=== PATIENT | female | born 1960 | race African-American/Black ===

== ENCOUNTER → 2020-03-02 | Day surgery (SDC) | payer OTHER ==
[2020-02-27 11:37] LABS: BASOPHILS # (AUTO) 0.1 (0.0-0.1); BASOPHILS % 0.6 % (0.0-1.0); EOSINOPHILS # (AUTO) 0.4 (0.0-0.4); EOSINOPHILS % 4.9 % (0.0-6.0); HEMATOCRIT 35.9 % (34.2-44.1); HEMOGLOBIN 12.1 g/dL (12.0-16.0); LYMPHOCYTES # (AUTO) 4.4 (1.0-3.2); LYMPHOCYTES % 55.5 % (18.0-39.1); MEAN CORPUSCULAR HEMOGLOBIN 28.8 pg (28-32); MEAN CORPUSCULAR HGB CONC 33.7 g/dL (31-35); MEAN CORPUSCULAR VOLUME 85.5 fL (81-99); MONOCYTES # (AUTO) 0.5 (0.2-0.8); MONOCYTES % 6.2 % (4.4-11.3); NEUTROPHILS # (AUTO) 2.6 (2.1-6.9); NEUTROPHILS % 32.5 % (38.7-80.0); PLATELET COUNT 256 x10e3/uL (140-360); RED CELL DISTRIBUTION WIDTH 14.6 % (11.7-14.4)
[~2020-03-02] MED LIST: AMLODIPINE BESY10 MG PO; ASPIRIN81 MG PO; ATORVASTATIN CA20 MG PO; CLOPIDOGREL75 MG PO; FENTANYL CITRATE/PF 100MCG/2 ML INJ ONE; GABAPENTIN100 MG PO; HYDROCHLOROTHIA25 MG PO; LIDOCAINE HCL 2% LOCAL INJ 5 ML SDV VIAL INJ ONE; METFORMIN HCL1000 MG PO; MIDAZOLAM HCL 2 MG/2 ML VIAL ONE; PANTOPRAZOLE 40 MG 10ML VIAL ONE; PROPOFOL IV EMULSION 10 MG/ML 20 ML VIAL ONE; SODIUM CHLORIDE 0.9% INJ 10 ML VIAL ONE
[2020-03-02 17:32] VITALS: BP 116/66
--- NOTE | 2020-03-25 20:09 | Operative Report ---
DATE OF PROCEDURE: 03/02/2020 SURGEON: Seth Casiano MD ADDENDUM: REFERRING PHYSICIAN: Sylvie Mulligan MD Seth Casiano MD [facility] [place] /[id number]
--- NOTE | 2020-03-25 20:15 | Operative Report ---
DATE OF PROCEDURE: 03/25/2020 SURGEON: Seth Casiano MD PROCEDURES: EGD with esophageal dilatation and biopsies, and colonoscopy with polypectomy. INDICATIONS FOR EGD: Dysphagia, weight loss. INDICATION FOR COLONOSCOPY: Colorectal cancer screening, constipation, and weight loss. MEDICATIONS: The patient was done under MAC, please see anesthesiologist's note. PROCEDURE IN DETAIL: With the patient in left lateral decubitus position, a flexible fiberoptic Olympus gastroscope was introduced into the esophagus under direct visualization without any difficulty. There was some patchy erythema noted in distal esophagus. A minute nodule was noted at the GE junction, that was biopsied. A mild stricture was noted at the GE junction and was dilated to size 52-[place]. The scope was then advanced with ease into the stomach, mucosa overlying the antrum and the body revealed some patchy erythema, low-grade to moderate edema, and biopsies were obtained, sent to stain for H. pylori. Pylorus was of normal contour and shape, it was intubated with ease and the scope, it was advanced all the way to the second portion of the duodenum. Biopsies were obtained from the proximal second portion and duodenal bulb to rule out sprue. The scope was then withdrawn back into the stomach and retroflexed, mucosa overlying the fundus and cardia appeared to be within normal limits. The scope was then straightened out, it was subsequently withdrawn. The patient tolerated the procedure well. IMPRESSION: 1. Distal esophagitis, mild. 2. Minute nodule, GE junction, biopsied. 3. Mild stricture, GE junction, dilated to size 52-[place] Ricks. 4. Gastritis, biopsied, biopsies sent to stain for H. pylori. 5. Rule out sprue. PLAN: 1. Follow up histology. 2. Initiate Protonix 40 mg one p.o. q.a.m. a.c. DESCRIPTION OF PROCEDURE: The patient was then turned around after adequate lubrication of the anal canal, a flexible fiberoptic Olympus colonoscope was inserted into the rectum with ease and advanced all the way to the cecum. The prep was overall suboptimal to poor with [id number] amount of retained scattered fecal material in the colon. The scope was then withdrawn slowly, whatever was visualized the mucosa overlying the cecum, ascending colon, and transverse colon grossly appeared to be within normal limits. A minute polyp was hot biopsied from the descending colon. Two polyps were hot snared and two polyps were hot biopsied from the sigmoid colon. The rectum grossly appeared to be within normal limits. The scope was then retroflexed into the distal rectum. Small internal hemorrhoids were noted, none of which was actively bleeding. The scope was then straightened out, it was subsequently withdrawn. The patient tolerated the procedure well. IMPRESSION: 1. Suboptimal to poor prep. 2. Descending colon polyp, hot biopsied. 3. Sigmoid colon polyps x4, two hot snared and two hot biopsied. 4. Internal hemorrhoids, none actively bleeding. 5. A total of five polyps were removed. PLAN: 1. Followup histology. 2. Initiate high-fiber, low-fat diet. 3. Initiate high-fiber supplement. 4. The patient will need a repeat colonoscopy after a better prep to rule out synchronous colorectal neoplasm. Seth Casiano MD [facility] [place] /[id number] cc: Sylvie Mulligan MD
== END | disposition home or self-care (01) ==
LOC: OR 12:50
PROVIDERS: ATTEND Internal Medicine Gastroenterology
DX: K22.2 Esophageal obstruction (principal); D12.5 Benign neoplasm of sigmoid colon; K29.50 Unspecified chronic gastritis without bleeding; B96.81 Helicobacter pylori [H. pylori] as the cause of diseases classified elsewhere; K29.80 Duodenitis without bleeding; K59.00 Constipation, unspecified; K20.9 Esophagitis, unspecified; K22.8 Other specified diseases of esophagus; K64.8 Other hemorrhoids; R63.4 Abnormal weight loss; I69.351 Hemiplegia and hemiparesis following cerebral infarction affecting right dominant side; E11.9 Type 2 diabetes mellitus without complications; I10 Essential (primary) hypertension; R00.1 Bradycardia, unspecified; R43.2 Parageusia; R09.89 Other specified symptoms and signs involving the circulatory and respiratory systems; F17.210 Nicotine dependence, cigarettes, uncomplicated; Z01.810 Encounter for preprocedural cardiovascular examination; Z01.812 Encounter for preprocedural laboratory examination; Z11.59 Encounter for screening for other viral diseases; Z79.02 Long term (current) use of antithrombotics/antiplatelets; Z79.82 Long term (current) use of aspirin; Z79.84 Long term (current) use of oral hypoglycemic drugs
CPT/HCPCS: 36415; 43239; 43450; 45384; 45385; 85025; 87635; 93005; J2001; J2250; J3010